=== PATIENT | female | born 1970 | race Caucasian/White ===

== ENCOUNTER 2017-02-08 12:13 | Emergency (ER) | payer OTHER ==
[~2017-02-08] VITALS: Ht 157.5 cm; Wt 61.2 kg
[2017-02-08] MEDS ORDERED: LEVOTHYROXINE 50 MCG TABLET PO (12:28)
[2017-02-08 13:01] LABS: *BILIRUBIN,URIN NEGATIVE (NEGATIVE); *BLOOD, URINE NEGATIVE (NEGATIVE); *COLOR,URINE YELLOW (YELLOW); *KETONES,URINE NEGATIVE (NEGATIVE); *PROTEIN,URINE TRACE (NEGATIVE); *UROBILINOGEN,URINE 0.2 E.U./dl (NORMAL); LEUKOCYTE ESTERASE ,URINE NEGATIVE (NEGATIVE); NITRITE, URINE NEGATIVE (NEGATIVE); PH,URINE 8.5 (5.0-8.0); UGLUCOSE NEGATIVE (NEGATIVE)
[2017-02-08 13:07] LABS: *CLARITY,URINE HAZY (CLEAR)
[2017-02-08 13:08] LABS: BACTERIA,URINE FEW /HPF (NONE SEEN); RBC,URINE 0-3 /HPF (0-3); SQUAMOUS EPITHELIAL CELL,UR MANY /HPF (NONE SEEN); URINE AMORPHOUS PHOSPHATES FEW /HPF; WBC,URINE 0-3 /HPF (0-3)
[2017-02-08 13:36] LABS: BASOPHILS % (AUTO) 0.7 % (0.0-2.0); EOSINOPHILS # (AUTO) 0.1 K/uL (0.0-0.7); HEMATOCRIT 40.8 % (37-47); HEMOGLOBIN 13.5 G/DL (12.0-16.0); LYMPHOCYTES # (AUTO) 1.7 K/UL (0.8-4.8); LYMPHOCYTES % (AUTO) 29.2 % (20.5-51.5); MEAN CORPUSCULAR HEMOGLOBIN 25.5 UUG (27.0-31.0); MEAN CORPUSCULAR HGB CONC 33 g/dL (32.0-37.0); MEAN CORPUSCULAR VOLUME 77.2 FL (81.0-99.0); MONOCYTES # (AUTO) 0.5 K/UL (0.1-1.30); NEUTROPHILS # (AUTO) 3.4 K/UL (1.8-8.9); NEUTROPHILS % (AUTO) 60.1 % (38.5-71.5); PLATELET COUNT (AUTO) 230 K/UL (150-450); WHITE BLOOD COUNT (AUTO) 5.7 K/UL (4.0-11.2)
[2017-02-08 13:50] LABS: BILIRUBIN,DIRECT 0.1 mg/dL (0.0-0.2); BILIRUBIN,TOTAL 0.6 mg/dL (0.2-1.0); CREATININE 0.9 mg/dL (0.6-1.3); POTASSIUM 3.6 mmol/L (3.5-5.1); TOTAL PROTEIN, SERUM 7.9 g/dL (6.4-8.2)
--- NOTE | 2017-02-08 15:46 | NUR ---
Pt resting in [facility], appears comfortable, states she is pain free at this time. Pt remains in ER Obs status due to Morphine IV adm per Dr. Dario gotti.
--- NOTE | 2017-02-08 18:23 | NUR ---
IV removed. Catheter intact and site benign. Pressure and 4x4 gauze applied to site. No bleeding noted.Patient discharged to home in stable conditon. Written and verbal after care instructions given. Patient verbalizes understanding of instructions. Stressed follow up with pmd or return to ER for worsening s/s.
[2017-02-10 08:10] LABS: *GC NAA Negative (Negative); *TRIC.VAG. NAA Negative (Negative)
== END 2017-02-08 18:26 | disposition home or self-care (01) ==
LOC: ER 12:13
DX: N39.0 Urinary tract infection, site not specified (principal)
CPT/HCPCS: 36415; 83690; 84703; 85025; 87491; A4663; C1758; J0696; J1885; J2270; J2405; J3490; J7050; Q0144; Q9967

== ENCOUNTER 2018-01-20 21:11 | Emergency (ER) | payer OTHER ==
[~2018-01-20] VITALS: Ht 152.4 cm; Wt 59.0 kg
[~2018-01-20 21:11] MED LIST: LEVOTHYROXINE 50 MCG TABLET PO
[2018-01-20 21:58] LABS: *BILIRUBIN,URIN NEGATIVE (NEGATIVE); *BLOOD, URINE NEGATIVE (NEGATIVE); *CLARITY,URINE SLIGHTLY CLOUDY (CLEAR); *COLOR,URINE YELLOW (YELLOW); *KETONES,URINE TRACE (NEGATIVE); *PROTEIN,URINE NEGATIVE (NEGATIVE); LEUKOCYTE ESTERASE ,URINE NEGATIVE (NEGATIVE); NITRITE, URINE NEGATIVE (NEGATIVE); UGLUCOSE NEGATIVE (NEGATIVE)
[2018-01-20] MEDS ORDERED: CIPROFLOXACIN HCL 250 MG TABLET PO ONE (22:00)
[2018-01-20 22:04] LABS: BACTERIA,URINE RARE /HPF (NONE SEEN); RBC,URINE 0-3 /HPF (0-3); SQUAMOUS EPITHELIAL CELL,UR MODERATE /HPF (NONE SEEN)
--- NOTE | 2018-01-20 22:05 | NUR ---
Patient discharged to home in stable conditon. Written and verbal after care instructions given. Patient verbalizes understanding of instructions.
[2018-01-20 22:07] VITALS: BP 104/63
[2018-01-20] MEDS ORDERED: CIPROFLOXACIN HCL 250 MG TABLET ONE (22:07)
[2018-01-21 00:07] LABS: *URINE HCG, QUAL NEGATIVE (NEGATIVE)
== END 2018-01-20 22:08 | disposition home or self-care (01) ==
LOC: ER 21:12
DX: N39.0 Urinary tract infection, site not specified (principal)
CPT/HCPCS: 84703; 87086; A4663

== ENCOUNTER 2018-01-24 22:15 | Emergency (ER) | payer OTHER ==
[~2018-01-24] VITALS: Ht 157.5 cm; Wt 59.0 kg
[2018-01-24 22:28] LABS: *URINE HCG, QUAL NEGATIVE (NEGATIVE)
[2018-01-24 22:32] LABS: *BILIRUBIN,URIN NEGATIVE (NEGATIVE); *BLOOD, URINE NEGATIVE (NEGATIVE); *COLOR,URINE YELLOW (YELLOW); *KETONES,URINE NEGATIVE (NEGATIVE); *PROTEIN,URINE NEGATIVE (NEGATIVE); *UROBILINOGEN,URINE 0.2 E.U./dl (NORMAL); LEUKOCYTE ESTERASE ,URINE NEGATIVE (NEGATIVE); NITRITE, URINE NEGATIVE (NEGATIVE); PH,URINE 6.5 (5.0-8.0); UGLUCOSE NEGATIVE (NEGATIVE)
[2018-01-24 22:41] LABS: *CLARITY,URINE HAZY (CLEAR)
[2018-01-24 22:42] LABS: BACTERIA,URINE FEW /HPF (NONE SEEN); MUCUS,URINE MODERATE /LPF (0-FEW); SQUAMOUS EPITHELIAL CELL,UR MODERATE /HPF (NONE SEEN); WBC,URINE 0-3 /HPF (0-3)
[2018-01-24] MEDS ORDERED: AZITHROMYCIN 250 MG TABLET ONE (23:11)
[2018-01-24] MEDS ORDERED: ONDANSETRON ODT 4 MG TAB.RAPDIS ONE (23:11)
[2018-01-24] MEDS ORDERED: LIDOCAINE HCL 2% 20 ML VIAL ONE (23:11)
[2018-01-24] MEDS ORDERED: CEFTRIAXONE 500 MG VIAL ONE (23:11)
[2018-01-24] MEDS: LIDOCAINE HCL 1% 20 ML VIAL IJ ONE (23:13)
[2018-01-24] MEDS: CEFTRIAXONE 500 MG VIAL IM ONE (23:14)
[2018-01-24] MEDS: ONDANSETRON ODT 4 MG TAB.RAPDIS SL ONE (23:14)
[2018-01-24] MEDS: AZITHROMYCIN 250 MG TABLET PO ONE (23:14)
--- NOTE | 2018-01-24 23:15 | NUR ---
Patient discharged to home in stable conditon. Written and verbal after care instructions given. Patient verbalizes understanding of instructions. Ambulated from ER with stable gait. All belongings with patient.
[2018-01-24 23:17] VITALS: BP 117/78
[2018-01-27 07:06] LABS: *GC NAA Negative (Negative); *TRIC.VAG. NAA Negative (Negative)
== END 2018-01-24 23:18 | disposition home or self-care (01) ==
LOC: ER 22:17
DX: N34.3 Urethral syndrome, unspecified (principal)
CPT/HCPCS: 84703; 87491; A4663; J0696; J3490; Q0144; Q0162

== ENCOUNTER 2018-02-10 22:34 | Emergency (ER) | payer OTHER ==
[~2018-02-10] VITALS: Ht 157.5 cm; Wt 59.0 kg
--- NOTE | 2018-02-10 22:50 | NUR ---
Dr. Pace at bedside for MSE. Pt provided urine sample, sent to lab.
[2018-02-10] MEDS ORDERED: PHENAZOPYRIDINE HCL 100 MG TABLET PO ONE (23:00)
[2018-02-10] MEDS ORDERED: NITROFURANTOIN/NITROFURAN MAC 100 MG CAPSULE PO ONE (23:00)
[2018-02-10] MEDS: CEFTRIAXONE 1 G VIAL IM ONE ×2 (23:00→23:14)
[2018-02-10] MEDS ORDERED: PHENAZOPYRIDINE HCL 100 MG TABLET ONE (23:02)
[2018-02-10] MEDS ORDERED: NITROFURANTOIN/NITROFURAN MAC 100 MG CAPSULE ONE (23:02)
[2018-02-10] MEDS ORDERED: CEFTRIAXONE 1 G VIAL ONE (23:06)
[2018-02-10] MEDS ORDERED: LIDOCAINE 1%-EPI 1:100,000 20 ML VIAL ONE (23:07)
[2018-02-10 23:16] LABS: *BILIRUBIN,URIN NEGATIVE (NEGATIVE); *BLOOD, URINE NEGATIVE (NEGATIVE); *CLARITY,URINE SLIGHTLY CLOUDY (CLEAR); *COLOR,URINE YELLOW (YELLOW); *KETONES,URINE NEGATIVE (NEGATIVE); *PROTEIN,URINE NEGATIVE (NEGATIVE); *UROBILINOGEN,URINE 0.2 E.U./dl (NORMAL); LEUKOCYTE ESTERASE ,URINE NEGATIVE (NEGATIVE); NITRITE, URINE NEGATIVE (NEGATIVE); PH,URINE 6.5 (5.0-8.0); UGLUCOSE NEGATIVE (NEGATIVE)
[2018-02-10 23:38] LABS: BACTERIA,URINE MANY /HPF (NONE SEEN); RBC,URINE NONE SEEN /HPF (0-3); RENAL EPITHELIAL CELLS,URINE FEW /LPF (NONE SEEN); SQUAMOUS EPITHELIAL CELL,UR MANY /HPF (NONE SEEN); WBC,URINE 0-3 /HPF (0-3)
--- NOTE | 2018-02-11 00:13 | NUR ---
Patient discharged to home in stable conditon. Written and verbal after care instructions given. Patient verbalizes understanding of instructions. Pt ambulated out of ER with steady gait, no acute signs of distress, VSS, all belongings taken.
[2018-02-11 00:15] VITALS: BP 121/75
== END 2018-02-11 00:15 | disposition home or self-care (01) ==
LOC: ER 22:35
DX: R30.0 Dysuria (principal)
CPT/HCPCS: 81001; 87086; 96372; 99284; A4663; J0696; J3490

== ENCOUNTER 2018-02-23 21:24 | Emergency (ER) | payer OTHER ==
[~2018-02-23] VITALS: Ht 157.5 cm; Wt 59.0 kg
--- NOTE | 2018-02-23 21:53 | NUR ---
PT A/OX4, RESPONSIVE TO VERBAL AND TACTILE STIMULI. PT C/O ABD PAIN 01/29 THAT STARTED ABOUT A WEEK AGO, NO PROVOKING FACTOR, RADIATES DOWN TO HER VAGINA AND GROIN AREA, CONSTANT. PT STATES SHE WAS SEEN AT A DIFFERENT HOSPITAL ON MONDAY AND WAS PRESCRIBED AN ANTIBIOTIC (DOES NOT RECALL NAME), BUT HAS NOT BEEN HELPING. DENIES C/P, SOB, N/V/D, DIZZINESS, HEADACHE. ER MD AT BEDSIDE.
[2018-02-23] MEDS ORDERED: AZITHROMYCIN 250 MG TABLET ONE (22:13)
[2018-02-23] MEDS ORDERED: CEFTRIAXONE 500 MG VIAL ONE (22:14)
[2018-02-23] MEDS ORDERED: CEFTRIAXONE 500 MG VIAL IM ONE (22:15)
[2018-02-23] MEDS ORDERED: AZITHROMYCIN 250 MG TABLET PO ONE (22:15)
[2018-02-23 22:17] LABS: *BILIRUBIN,URIN NEGATIVE (NEGATIVE); *BLOOD, URINE NEGATIVE (NEGATIVE); *CLARITY,URINE CLEAR (CLEAR); *COLOR,URINE LIGHT YELLOW (YELLOW); *KETONES,URINE NEGATIVE (NEGATIVE); *PROTEIN,URINE NEGATIVE (NEGATIVE); *URINE HCG, QUAL NEGATIVE (NEGATIVE); *UROBILINOGEN,URINE 0.2 E.U./dl (NORMAL); LEUKOCYTE ESTERASE ,URINE NEGATIVE (NEGATIVE); NITRITE, URINE NEGATIVE (NEGATIVE); PH,URINE 6.5 (5.0-8.0); UGLUCOSE NEGATIVE (NEGATIVE)
[2018-02-23 22:21] LABS: BACTERIA,URINE FEW /HPF (NONE SEEN); SQUAMOUS EPITHELIAL CELL,UR FEW /HPF (NONE SEEN); WBC,URINE 0-3 /HPF (0-3)
--- NOTE | 2018-02-23 22:33 | NUR ---
Patient discharged to home in stable conditon. Written and verbal after care instructions given. Patient verbalizes understanding of instructions. PT D/C WITH PRESCRIPTION. ALL BELONGINGS W/ PT. PT SELF-AMBULATED WITHOUT DIFFICULTY.
[2018-02-23 22:34] VITALS: BP 118/72
[2018-02-27 09:08] LABS: *TRIC.VAG. NAA Negative (Negative)
== END 2018-02-23 22:39 | disposition home or self-care (01) ==
LOC: ER 21:26
DX: A64 Unspecified sexually transmitted disease (principal)
CPT/HCPCS: 84703; 87491; A4663; J0696; Q0144

== ENCOUNTER 2018-05-19 09:22 | Emergency (ER) | END 2018-05-19 12:19 | disposition home or self-care (01) | DX: B37.3 Candidiasis of vulva and vagina (principal); R20.2 Paresthesia of skin ==